=== PATIENT | female | born 1945 | race Caucasian/White ===

== ENCOUNTER → 2024-11-10 10:37 | Outpatient (REF) | payer MEDICARE, OTHER, SELFPAY | LOC: HWRAD 10:37 | PROVIDERS: ATTENDING PHYSICIAN Internal Medicine Gastroenterology; FAMILY PHYSICIAN Internal Medicine | DX: K59.00 Constipation, unspecified (principal); R19.4 Change in bowel habit | CPT/HCPCS: 74261 ==